=== PATIENT | female | born 1930 | race Caucasian/White ===

== ENCOUNTER 2016-03-25 13:59 | Emergency (ER) | payer OTHER ==
[2016-03-25 14:33] LABS: COLOR YELLOW; LEUKOCYTE ESTERASE,URINE TRACE (NEGATIVE); NITRITE,URINE NEGATIVE (NEGATIVE); PH,URINE 5.5 (5.0-7.5)
[2016-03-25 14:34] VITALS: BP 141/78; PULSE 74; RESP 16; TEMP 97.9; O2SAT 93
[2016-03-25 14:46] LABS: MUCUS 1+ /lpf (NONE-1+)
[2016-03-25 14:49] LABS: BACTERIA TRACE /hpf (NONE SEEN); YEAST OCCASIONAL /hpf (NONE SEEN)
--- NOTE | 2016-03-25 15:17 | UCPHY ---
H & P Time Seen by Provider: 03/25/16 14:59 Patient Type: Established HPI/ROS: This patient presents with a chief complaint of dysuria associated with swelling erythema and itching in the vaginal region. She was seen here on the of last month for the same complaints. A urine culture from that visit was negative. She is incontinent chronically and therefore cannot tell if she is experiencing urgency or frequency. 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 Of time. She does not think she has had any vaginal discharge. She denies fever, flank pain, nausea vomiting or diarrhea. She says Antibiotics cause diarrhea generally. The patient is blind Smoking Status: Former smoker Physical Exam: This is a well-developed well-nourished female who is in no acute distress. She is appropriate and cooperative. There is no abdominal tenderness and no flank tenderness. Constitutional: Initial Vital Signs Temperature (C) 36.6 C 03/25/16 14:27 Heart Rate 74 03/25/16 14:27 Respiratory Rate 16 03/25/16 14:27 Blood Pressure 141/78 H 03/25/16 14:27 O2 Sat (%) 93 03/25/16 14:27 O2 Delivery Mode Room Air Allergies/Adverse Reactions: No Known Allergies Allergy (Verified 03/25/16 14:26) Home Medications: Medication Instructions Recorded Aspirin 81mg (*) 10/28/15 Escitalopram Oxalate 10/28/15 GLIPIZIDE 10/28/15 Gabapentin 10/28/15 Levothyroxine 10/28/15 Losartan Potassium 10/28/15 Metformin HCl 10/28/15 Metoprolol Tartrate 10/28/15 Multivitamin 10/28/15 Omeprazole 10/28/15 SIMVASTATIN 10/28/15 buPROPion 10/28/15 Fluconazole [Diflucan (*)] 150 mg PO ONCE #0 tab 03/14/16 Medical Decision Making Differential Diagnosis: A urinalysis is not suggestive of a urinary tract infection and I believe the abnormalities are secondary to contamination. A culture however was ordered. The patient has an appointment with an doctor of nurse anesthesia in 3 days which she is advised to keep. - Data Points Laboratory Results: 03/25/16 14:30 Urine Color YELLOW Urine Appearance CLEAR Urine pH 5.5 (5.0-7.5) Ur Specific [place] 1.020 (1.002-1.030) Urine Protein NEGATIVE (NEGATIVE) Urine Ketones NEGATIVE (NEGATIVE) Urine Blood NEGATIVE (NEGATIVE) Urine Nitrate NEGATIVE (NEGATIVE) Urine Bilirubin NEGATIVE (NEGATIVE) Urine Urobilinogen 0.2 EU (0.2-1.0) Ur Leukocyte Esterase TRACE H (NEGATIVE) Urine RBC 1-3 /hpf (0-3) Urine WBC 5-10 H /hpf (0-3) Ur Epithelial Cells 2+ H /lpf (NONE-1+) Urine Bacteria TRACE H /hpf (NONE SEEN) Urine Mucus 1+ /lpf (NONE-1+) Urine Yeast OCCASIONAL H /hpf (NONE SEEN) Urine Glucose NEGATIVE (NEGATIVE) Departure - Departure Disposition: Home, Routine, Self-Care Clinical Impression: Dysuria, Itching in the vaginal area Condition: Good Instructions: Dysuria (ED) Additional Instructions: Keep your appointment with the clinic as previously scheduled on Monday. Try using [id number] Monistat or a similar medication. Take the Diflucan in 2 more days. Call for pending test results in 3 day(s). [facility] [phone] [facility] [phone] [facility] [phone] Tests pending: Urine culture - PQRS PQRS Measurement: Not applicable
== END 2016-03-25 15:23 | disposition home or self-care (01) ==
LOC: CED 13:59
DX: R30.0 Dysuria (principal); N89.8 Other specified noninflammatory disorders of vagina; Z87.891 Personal history of nicotine dependence
CPT/HCPCS: 81003-PO; 81015-PO; 99214-PO; G0463-PO

== ENCOUNTER 2016-08-18 08:47 | Inpatient (IN) | payer OTHER ==
--- NOTE | 2016-08-18 09:29 | EDPHY ---
H & P Stated Complaint: c/o am shaking with magali falls - BS @ 0800- 91 Time Seen by Provider: 08/18/16 08:56 HPI/ROS: Chief Complaint: Shaking, can't walk HPI: 85-year-old woman with a history of type 2 diabetes presenting feeling shaky with the inability to walk today. Patient states she has been having increasing shaking primarily in the mornings when she gets up. This morning she got up and noted that her blood sugar at 8 o'clock this morning was 91. Patient was able to make it to the bathroom but was able to get up off the toilet. She did call a neighbor to help her. Patient states that she is having a hard time holding on her walker and ambulating because of the shakiness. She did fall last week and was unable to get up. Denies any fevers or chills. No chest pain or shortness of breath. Has have chronic urine incontinence and has had urinary tract infections in the past. There has not been any changes to her medications recently. She states that the shaking is usually gets better later in the morning after she has had something the eat. ROS: 10 point Review of Systems is negative except as noted in the HPI. PMH: Type 2 diabetes, hypothyroidism, hypertension, COPD, macular degeneration Medications: Oxygen 2 L via nasal cannula, metformin, metoprolol, gabapentin, levothyroxine, simvastatin, glipizide, escitalopram Social History: No smoking, no alcohol, no recreational drug use, patient lives alone in apartment Family History: non-contributory Physical Exam: Gen: Awake, Alert, No Distress HEENT: Nose: no rhinorrhea Eyes: PERRLA, EOMI Mouth: Moist mucosa Neck: Supple, no JVD Chest: nontender, lungs clear to auscultation Heart: S1, S2 normal, no murmur Abd: Soft, non-tender, no guarding Back: no CVA tenderness, no midline tenderness Ext: no edema, non-tender Skin: no rash Neuro: CN II-XII intact, Sensation grossly intact, Strength 5/5 in bilateral upper and lower extremities - Personal History Tetanus Vaccine Date: within 10 years - Medical/Surgical History Hx Asthma: No Hx Chronic Respiratory Disease: No Hx Diabetes: No Hx Cardiac Disease: No Hx Renal Disease: No Hx Cirrhosis: No Hx Alcoholism: No Hx HIV/AIDS: No Hx Splenectomy or Spleen Trauma: No Other PMH: BACK SURG, KNEE REPLACEMENT, CARDIAC STENTS, BACK SURG, TONSILS, FX PELVIS, GALLBLADDER, DVT, HTN. - Social History Smoking Status: Former smoker Constitutional: Initial Vital Signs Temperature (C) 36.6 C 08/18/16 08:59 Heart Rate 67 08/18/16 08:59 Respiratory Rate 18 08/18/16 08:59 Blood Pressure 144/87 H 08/18/16 08:59 O2 Sat (%) 94 08/18/16 08:59 O2 Delivery Mode Nasal Cannula O2 (L/minute) 2 Allergies/Adverse Reactions: No Known Allergies Allergy (Verified 03/25/16 14:26) Home Medications: Medication Instructions Recorded Aspirin 81mg (*) 10/28/15 Escitalopram Oxalate 10/28/15 GLIPIZIDE 10/28/15 Gabapentin 10/28/15 Levothyroxine 10/28/15 Losartan Potassium 10/28/15 Metformin HCl 10/28/15 Metoprolol Tartrate 10/28/15 Multivitamin 10/28/15 Omeprazole 10/28/15 SIMVASTATIN 10/28/15 buPROPion 10/28/15 Fluconazole [Diflucan (*)] 150 mg PO ONCE #0 tab 03/14/16 Medical Decision Making - Diagnostics EKG Interpretation: ECG time 10:38 a.m. sinus rhythm with a rate of 57, normal axis, normal intervals, no acute ST or T-wave changes. Impression: Normal ECG Imaging Results: Imaging Impressions Chest X-Ray 08/18/16 09:59 Impression: 1. No pneumonia. 2. Cardiomegaly without failure. 3. Atherosclerosis. Imaging: I viewed and interpreted images myself ED Course/Re-evaluation: Patient with shaking missing weakness and inability to walk this morning. Has been having similar symptoms but is increasing in frequency. Chest x-ray shows no pneumonia. Urinalysis is negative. Chemistry is normal. Blood sugar here is 140. A wet sugar 91 this morning I suspect that she is having low blood sugars in the morning which is causing her symptoms which are improving over the course today after she eats. Unfortunately she lives alone and was unable to get herself off the toilet this morning. Male discussed with the hospitalist about a hospitalization to assess her blood sugars overnight and make any appropriate changes and further workup. She does have a leukocytosis but there is no focus of infection at this time. - Data Points Laboratory Results: Laboratory Results 08/18/16 09:30 08/18/16 09:30 08/18/16 08/18/16 08/18/16 09:30 09:30 09:30 WBC 13.86 10^3/uL H 10^3/uL (3.80-9.50) RBC 5.02 10^6/uL 10^6/uL (4.18-5.33) Hgb 13.9 g/dL g/dL (12.6-16.3) Hct 42.7 % % (38.0-47.0) MCV 85.1 fL fL (81.5-99.8) MCH 27.7 pg L pg (27.9-34.1) MCHC 32.6 g/dL g/dL (32.4-36.7) RDW 15.7 % H % (11.5-15.2) Plt Count 271 10^3/uL 10^3/uL (150-400) MPV 9.8 fL fL (8.7-11.7) Neut % (Auto) 74.6 % H % (39.3-74.2) Lymph % (Auto) 12.8 % L % (15.0-45.0) [place] % (Auto) 8.2 % % (4.5-13.0) Eos % (Auto) 2.7 % % (0.6-7.6) Baso % (Auto) 0.9 % % (0.3-1.7) Nucleat RBC Rel Count 0.0 % % (0.0-0.2) Absolute Neuts (auto) 10.33 10^3/uL H 10^3/uL (1.70-6.50) Absolute Lymphs (auto) 1.78 10^3/uL 10^3/uL (1.00-3.00) Absolute Monos (auto) 1.14 10^3/uL H 10^3/uL (0.30-0.80) Absolute Eos (auto) 0.38 10^3/uL 10^3/uL (0.03-0.40) Absolute Basos (auto) 0.12 10^3/uL H 10^3/uL (0.02-0.10) Absolute Nucleated RBC 0.00 10^3/uL 10^3/uL (0-0.01) Immature Gran % 0.8 % % (0.0-1.1) Immature Gran # 0.11 10^3/uL H 10^3/uL (0.00-0.10) Sodium 137 mEq/L mEq/L (134-144) Potassium 4.8 mEq/L mEq/L (3.5-5.2) Chloride 100 mEq/L mEq/L (97-110) Carbon Dioxide 23 mEq/l mEq/l (22-31) Anion Gap 14 mEq/L mEq/L (8-16) BUN 23 mg/dL mg/dL (7-23) Creatinine 0.9 mg/dL mg/dL (0.6-1.0) Estimated GFR 60 Glucose 144 mg/dL H mg/dL (70-100) Calcium 9.3 mg/dL mg/dL (8.5-10.4) Total Bilirubin 0.6 mg/dL mg/dL (0.1-1.4) Conjugated Bilirubin 0.3 mg/dL mg/dL (0.0-0.5) Unconjugated Bilirubin 0.3 mg/dL mg/dL (0.0-1.1) AST 24 IU/L IU/L (14-46) ALT 26 IU/L IU/L (9-52) Alkaline Phosphatase 68 IU/L IU/L (38-126) Total Protein 6.3 g/dL g/dL (6.3-8.2) Albumin 3.5 g/dL g/dL (3.5-5.0) Lipase 66.0 IU/L IU/L (23-300) Urine Color YELLOW Urine Appearance CLEAR Urine pH 6.0 (5.0-7.5) Ur Specific [place] <= 1.005 (1.002-1.030) Urine Protein NEGATIVE (NEGATIVE) Urine Ketones NEGATIVE (NEGATIVE) Urine Blood NEGATIVE (NEGATIVE) Urine Nitrate NEGATIVE (NEGATIVE) Urine Bilirubin NEGATIVE (NEGATIVE) Urine Urobilinogen 0.2 EU EU (0.2-1.0) Ur Leukocyte Esterase NEGATIVE (NEGATIVE) Urine Glucose NEGATIVE (NEGATIVE) Departure - Departure Disposition: [facility] Clinical Impression: Weakness, Tremor, Falls Condition: Fair Referrals: Gary Davis MD [Primary Care Provider] - As per Instructions
[2016-08-18 09:50] LABS: % IMMATURE GRANULYOCYTES 0.8 % (0.0-1.1); ABSOLUTE IMMATURE GRANULOCYTES 0.11 10^3/uL (0.00-0.10); ADD DIFF? NO; ADD MORPH? NO; ADD SCAN? NO; ATYPICAL LYMPHOCYTE FLAG 0 (0-99); FRAGMENT RBC FLAG 0 (0-99); HEMATOCRIT 42.7 % (38.0-47.0); HEMOGLOBIN 13.9 g/dL (12.6-16.3); LEFT SHIFT FLG 0 (0-99); LIPEMIA HEMOLYSIS FLAG 80 (0-99); MEAN CELL HEMOGLOBIN 27.7 pg (27.9-34.1); MEAN CELL HEMOGLOBIN CONCENTR. 32.6 g/dL (32.4-36.7); MEAN CELL VOLUME 85.1 fL (81.5-99.8); MEAN PLATELET VOLUME 9.8 fL (8.7-11.7); PLATELET CLUMPS FLAG 0 (0-99); PLATELET COUNT 271 10^3/uL (150-400); RED BLOOD CELL COUNT 5.02 10^6/uL (4.18-5.33); RED CELL DISTRIBUTION WIDTH 15.7 % (11.5-15.2)
[2016-08-18 09:54] LABS: COLOR YELLOW; LEUKOCYTE ESTERASE,URINE NEGATIVE (NEGATIVE); NITRITE,URINE NEGATIVE (NEGATIVE)
[2016-08-18 10:04] LABS: ALBUMIN 3.5 g/dL (3.5-5.0); BILIRUBIN,TOTAL 0.6 mg/dL (0.1-1.4); BILIRUBIN-CONJUGATED 0.3 mg/dL (0.0-0.5); BILIRUBIN-UNCONJUGATED 0.3 mg/dL (0.0-1.1); CALCIUM 9.3 mg/dL (8.5-10.4); CREATININE 0.9 mg/dL (0.6-1.0); POTASSIUM 4.8 mEq/L (3.5-5.2); TOTAL PROTEIN 6.3 g/dL (6.3-8.2)
--- NOTE | 2016-08-18 10:40 | CPEKG ---
Heart Rate: 57 RR Interval: 1053 P-R Interval: 164 QRSD Interval: 80 QT Interval: 392 QTC Interval: 382 P Deep Water: 11 QRS Deep Water: 16 T Wave Deep Water: 66 EKG Severity - BORDERLINE ECG - EKG Impression: SINUS RHYTHM EKG Impression: BORDERLINE T ABNORMALITIES, LATERAL LEADS Electronically Signed By: Demetrio Gu 18-Aug-2016 13:26:43
[2016-08-18] MEDS ORDERED: ONDANSETRON 4 MG/2 ML VIAL IVP PRN (14:26)
[2016-08-18] MEDS ORDERED: D50W 25 GM/50 ML SYR IVP PRN (14:27)
--- NOTE | 2016-08-18 15:04 | GHP ---
[f rep st] HISTORY AND PHYSICAL DATE OF ADMISSION: 08/18/2016 CHIEF COMPLAINT: Weakness and shaking. HISTORY OF PRESENT ILLNESS: This is an 85-year-old female with a longstanding history of type 2 klarissa betes mellitus, hypertension, and macular degeneration, who lives independently in [place] who awo ke this morning feeling very weak and unable to walk. The patient has been having shakes in the mor edmundo when she gets up. Her shakes get better when she eats. This morning, her blood sugar was 91 a t 8 o'clock this morning. The patient has caregivers who come to her house a couple times per night. She has been compliant w ith her metformin and glipizide. Last night, she did not have a very large dinner since she did not have anyone to help her prepare anything. She denies any fevers or chills. She has chronic urinary incontinence but denies any pain with urin ation or changes in her urine odor or color. She denies any chest pain or shortness of breath. PAST MEDICAL HISTORY: 1. Type 2 diabetes mellitus. 2. Hypothyroidism. 3. Hypertension. 4. Macular degeneration. PAST SURGICAL HISTORY: 1. Back surgery. 2. Left total knee arthroplasty x2. 3. Cholecystectomy. HOME MEDICATIONS: Reviewed. Refer to [employer] for details. ALLERGIES: Adhesive tape. SOCIAL HISTORY: The patient lives independently in [place]. She denies any alcohol, tobacco, or illicit drug use. FAMILY HISTORY: Reviewed and noncontributory. REVIEW OF SYSTEMS: Comprehensive 10-point review of systems was done and is negative except for as mentioned in the HPI. PHYSICAL EXAMINATION: VITAL SIGNS: Blood pressure 146/58, pulse 67, respiratory rate 18, O2 satura tion 94% on 2 L. Temperature afebrile. GENERAL: No acute distress. HEAD: Normocephalic, atrauma tic. EYES: PERRLA. Sclerae anicteric. MOUTH: Moist mucous membranes. NECK: Supple. No lympha denopathy. CARDIOVASCULAR: S1, S2. No JVD. No lower extremity edema. PULMONARY: Lungs are nguyễn r. No wheezes, rales, or rhonchi. ABDOMEN: Soft, nontender, nondistended. No guarding or rebound tenderness. Normoactive bowel sounds. EXTREMITIES: No clubbing or cyanosis. NEURO: Cranial ner ves 2-12 grossly intact. No focal motor or sensory deficits. SKIN: Clear. No rashes. DIAGNOSTICS: WBC is 13.86 hemoglobin 13.9, hematocrit 42.7, platelets 271. Sodium 137, potassium 4 .8, chloride 100, CO2 of 23, BUN 23, creatinine 0.9, glucose 144. LFTs reviewed and unremarkable. UA without signs of infection. EKG, which I visualized and personally interpreted, shows sinus rhythm, rate 57 beats per minute, no acute ischemic changes. Chest x-ray is negative for pneumonia. ASSESSMENT AND PLAN: This is an 85-year-old female presenting with: 1. Episodic weakness and shaking that improves with eating, concerning for possible hypoglycemia ve rsus other. Plan: Patient will be placed on observation where we will hold her home dose of glipiz sachi. Blood sugars will be monitored q.a.c. and h.s. Will also order hemoglobin A1c. 2. History of hypertension. Plan: Continue home medications and monitor. 3. History of hypothyroidism. Plan: Check a TSH since this could possibly be contributing to her weakness as well. DISPOSITION: At this point, the patient will be placed on observation. We will defer ordering Love nox for DVT prophylaxis at this time but will readdress if she continues to require further hospital ization. PT and OT have been consulted as well. /[id number]/MODL
[2016-08-18] MEDS: INSULIN LISPRO 100 UNIT/ML SC SCH (18:12)
[2016-08-18] MEDS ORDERED: CARBOXYMETHYLCELLULOSE 1% 0.4 ML DROPERETTE EACHEYE PRN (20:29)
[2016-08-18 21:23] LABS: HEMOGLOBIN A1C 7.6 % (4.0-6.0)
[2016-08-18] MEDS: ACETAMINOPHEN 325 MG TAB PO PRN (22:05)
[2016-08-18] MEDS: ASPIRIN 81 MG CHEWABLE TAB PO SCH (22:06)
[2016-08-18] MEDS: GABAPENTIN 300 MG CAP PO SCH (22:06)
[2016-08-18] MEDS: METOPROLOL TARTRATE 25 MG TAB PO SCH (22:06)
[2016-08-18] MEDS: ATORVASTATIN CALCIUM 20 MG TAB PO SCH (22:09)
[2016-08-18] MEDS: traZODone 50 MG TAB PO PRN (22:18)
[2016-08-19] MEDS: ACETAMINOPHEN 325 MG TAB PO PRN ×2 (05:17→21:21)
[2016-08-19] MEDS: LEVOTHYROXINE 88 MCG TAB PO SCH (05:17)
[2016-08-19] MEDS ORDERED: CETIRIZINE 10 MG TAB PO PRN (09:00)
[2016-08-19] MEDS: buPROPion XL 150 MG TAB PO SCH (09:17)
[2016-08-19] MEDS: metFORMIN HCL 500 MG TAB PO SCH ×2 (09:17→17:16)
[2016-08-19] MEDS: METOPROLOL TARTRATE 25 MG TAB PO SCH ×2 (09:17→21:20)
[2016-08-19] MEDS: ESCITALOPRAM OXALATE 10 MG TAB PO SCH (09:17)
[2016-08-19] MEDS: PANTOPRAZOLE SODIUM 40 MG TAB PO SCH (09:17)
[2016-08-19] MEDS: INSULIN LISPRO 100 UNIT/ML SC SCH ×3 (09:24→17:15)
--- NOTE | 2016-08-19 09:43 | HOSPPROG ---
Hospitalist Progress Note Assessment/Plan: #episodic weakness and shaking suspect hypoglycemia from glipizide with persistent weakness which I suspect is now due to a fear from falling. I discussed this with the patient's daughter Alyse who shared with me that her mother has not been very mobile for awhile due to fear. -no signs of hypoglycemia since holding glipizide -will resume am dose, but continue to hold pm dose #controlled hypothyroidism #Htn (controlled) Dispo: will change to inpatient status given that she is too weak and unsteady to return home today. May need SNF/rehab. DC Godfrey Subjective: still feels weak. improving shaking. not able to get out of bed without assist. no chest pain. no fevers or chills Objective: Vital Signs Temp Pulse Resp BP Pulse Ox 36.8 C 66 18 155/85 H 96 08/19/16 07:26 08/19/16 09:17 08/19/16 07:26 08/19/16 09:17 08/19/16 07:26 08/18/16 08/19/16 08/20/16 05:59 05:59 05:59 Output Total 950 1600 Balance -950 -1600 - Physical Exam Constitutional: no apparent distress, appears nourished, not in pain Eyes: PERRL, anicteric sclera, EOMI Ears, Nose, Mouth, Throat: moist mucous membranes, hearing normal, ears appear normal, no oral mucosal ulcers Cardiovascular: regular rate and rhythym, no murmur, rub, or gallop Respiratory: no respiratory distress, no rales or rhonchi, clear to auscultation Gastrointestinal: normoactive bowel sounds, soft, non-tender abdomen, no palpable masses, No guarding, No rebound Genitourinary: godfrey in urethra Skin: no rashes or abrasions, no fluctuance, no induration Neurologic: AAOx3, sensation intact bilaterally, CN II-XII Intact, No facial droop ICD10 Worksheet Patient Problems: Problems Problem Status Onset Itching in the vaginal area Acute Weakness Acute Tremor Acute Falls Acute
[2016-08-19] MEDS: glipiZIDE 5 MG TAB PO SCH (12:46)
[2016-08-19] MEDS: GABAPENTIN 300 MG CAP PO SCH (21:21)
[2016-08-19] MEDS: traZODone 50 MG TAB PO PRN (21:21)
[2016-08-19] MEDS: ASPIRIN 81 MG CHEWABLE TAB PO SCH (21:21)
[2016-08-19] MEDS: ATORVASTATIN CALCIUM 20 MG TAB PO SCH (21:21)
[2016-08-20] MEDS: ACETAMINOPHEN 325 MG TAB PO PRN ×3 (05:40→23:11)
[2016-08-20] MEDS: LEVOTHYROXINE 88 MCG TAB PO SCH (05:40)
[2016-08-20] MEDS: INSULIN LISPRO 100 UNIT/ML SC SCH ×3 (09:04→17:38)
[2016-08-20] MEDS: PANTOPRAZOLE SODIUM 40 MG TAB PO SCH (09:09)
[2016-08-20] MEDS: buPROPion XL 150 MG TAB PO SCH (09:09)
[2016-08-20] MEDS: METOPROLOL TARTRATE 25 MG TAB PO SCH ×2 (09:09→20:10)
[2016-08-20] MEDS: metFORMIN HCL 500 MG TAB PO SCH ×2 (09:09→18:44)
[2016-08-20] MEDS: glipiZIDE 5 MG TAB PO SCH (09:09)
[2016-08-20] MEDS: ESCITALOPRAM OXALATE 10 MG TAB PO SCH (09:10)
--- NOTE | 2016-08-20 09:59 | HOSPPROG ---
Hospitalist Progress Note Assessment/Plan: #episodic weakness and shaking suspect hypoglycemia from glipizide with persistent weakness which I suspect is now due to a fear from falling. I discussed this with the patient's daughter Alyse who shared with me that her mother has not been very mobile for awhile due to fear. PT has deemed her unsafe to DC home -no signs of hypoglycemia since holding glipizide -continue am dose, but continue to hold pm dose of glipizide #controlled hypothyroidism #Htn (controlled) Dispo:dc to snf once bed is available Subjective: still feels weak. no fevers or chills. no urinary complaints Objective: Vital Signs Temp Pulse Resp BP Pulse Ox 36.8 C 62 17 126/83 H 92 08/20/16 07:37 08/20/16 09:09 08/20/16 07:37 08/20/16 09:09 08/20/16 07:37 08/19/16 08/20/16 08/21/16 05:59 05:59 05:59 Intake Total 600 Output Total 800 Balance -200 - Physical Exam Constitutional: no apparent distress, appears nourished, not in pain Musculoskeletal: generalized weakness Neurologic: AAOx3, sensation intact bilaterally Psychiatric: interacting appropriately, not anxious, not encephalopathic, thought process linear ICD10 Worksheet Patient Problems: Problems Problem Status Onset Itching in the vaginal area Acute Weakness Acute Tremor Acute Falls Acute
[2016-08-20] MEDS: ATORVASTATIN CALCIUM 20 MG TAB PO SCH (20:11)
[2016-08-20] MEDS: GABAPENTIN 300 MG CAP PO SCH (20:11)
[2016-08-20] MEDS: ASPIRIN 81 MG CHEWABLE TAB PO SCH (20:11)
[2016-08-20] MEDS: CEPACOL LOZENGE PO PRN (20:14)
[2016-08-20] MEDS: traZODone 50 MG TAB PO PRN (23:11)
[2016-08-21] MEDS: LEVOTHYROXINE 88 MCG TAB PO SCH (06:00)
[2016-08-21] MEDS: CEPACOL LOZENGE PO PRN ×2 (06:04→19:49)
[2016-08-21] MEDS: INSULIN LISPRO 100 UNIT/ML SC SCH ×3 (09:20→18:30)
[2016-08-21] MEDS: buPROPion XL 150 MG TAB PO SCH (09:23)
[2016-08-21] MEDS: METOPROLOL TARTRATE 25 MG TAB PO SCH ×2 (09:23→19:51)
[2016-08-21] MEDS: glipiZIDE 5 MG TAB PO SCH (09:23)
[2016-08-21] MEDS: ESCITALOPRAM OXALATE 10 MG TAB PO SCH (09:23)
[2016-08-21] MEDS: ACETAMINOPHEN 325 MG TAB PO PRN ×3 (09:23→21:59)
[2016-08-21] MEDS: metFORMIN HCL 500 MG TAB PO SCH ×2 (09:23→18:30)
[2016-08-21] MEDS: PANTOPRAZOLE SODIUM 40 MG TAB PO SCH (09:23)
--- NOTE | 2016-08-21 11:41 | PDIAF ---
- Diagnosis Diagnosis: weakness Code Status: Full Code - Medication Management Discharge Medications: Medications to Continue on Transfer Aspirin [Aspirin 81mg (*)] 81 mg PO HS 10/28/15 [Last Taken 08/17/16] Carboxymethylcellulose 1% [Refresh Celluvisc (*)] 1 drop EACHEYE BID PRN [Last Taken 08/18/16] Escitalopram Oxalate [Lexapro 10 MG] 10 mg PO DAILY 10/28/15 [Last Taken ] Gabapentin [Neurontin 300 MG (*)] 300 mg PO HS 10/28/15 [Last Taken 08/17/16] Levothyroxine [Synthroid 88 mcg (*)] 88 mcg PO DAILY06 10/28/15 [Last Taken 04/05] Metoprolol Tartrate [Lopressor 25 mg (*)] 25 mg PO BID 10/28/15 [Last Taken 04/05] Multivitamins [Multivitamin (*)] 1 each PO DAILY 10/28/15 [Last Taken Unknown] Omeprazole [Prilosec 20 mg] 20 mg PO DAILY 10/28/15 [Last Taken 08/18/16] Simvastatin [Zocor] 40 mg PO HS 10/28/15 [Last Taken 08/17/16] buPROPion XL [Wellbutrin 150mg XL] 150 mg PO DAILY 10/28/15 [Last Taken 08/18/16 ] glipiZIDE [Glipizide] 5 mg PO DAILY 10/28/15 [Last Taken 08/18/16] metFORMIN HCL [Glucophage 500 mg (*)] 500 mg PO BIDMEAL 10/28/15 [Last Taken 04/05] Loratadine [Claritin] 10 mg PO DAILY PRN 08/18/16 [Last Taken Unknown] Discharge Medications: Refer to the Discharge Home Medication list for PRN reason. - Orders Services needed: Physical Therapy, Occupational Therapy Diet Recommendation: ADA 1800 consistent carb Diet Texture: Regular Texture Diet Additional: check glucose before meals and at bedtime - Follow Up Care Current Providers and Referrals: Gary Davis MD [Primary Care Provider] - As per Instructions
--- NOTE | 2016-08-21 12:52 | HOSPPROG ---
Hospitalist Progress Note Assessment/Plan: #episodic weakness and shaking suspect hypoglycemia from glipizide with persistent weakness which I suspect is now due to a fear from falling. I discussed this with the patient's daughter Alyse who shared with me that her mother has not been very mobile for awhile due to fear. PT has deemed her unsafe to DC home -no signs of hypoglycemia since holding glipizide -continue am dose, but continue to hold pm dose of glipizide #controlled hypothyroidism #Htn (controlled) Dispo:dc to snf once bed is available Subjective: no new issues. improving strength Objective: Vital Signs Temp Pulse Resp BP Pulse Ox 36.8 C 58 L 14 144/50 H 97 08/21/16 08:00 08/21/16 09:23 08/21/16 08:00 08/21/16 09:23 08/21/16 08:00 08/20/16 08/21/16 08/22/16 05:59 05:59 05:59 Intake Total 600 400 236 Output Total 800 451 Balance -200 -51 236 gen nad cv rrr pulm clear abd soft +bs ext no edema ICD10 Worksheet Patient Problems: Problems Problem Status Onset Itching in the vaginal area Acute Weakness Acute Tremor Acute Falls Acute
--- NOTE | 2016-08-21 13:36 | GDS ---
[f rep st] DISCHARGE SUMMARY DISCHARGE DIAGNOSES: 1. Episodic weakness and shaking from suspected hypoglycemia from p.m. glipizide dose in the settin g of not eating dinner. 2. Controlled hypothyroidism. 3. Hypertension. 4. Generalized weakness and deconditioning. BRIEF HISTORY OF PRESENT ILLNESS: This is an 85-year-old female who presented to the hospital on reporting weakness and shaking. The patient was admitted to the hospital where we have hel d her p.m. dose of glipizide 7.5 mg at bedtime. She has had no noted hypoglycemia. However, the pa ariella has continued to be very weak and not safe to go home. I discussed the patient's condition wi th her daughter, who thinks that her weakness is likely due to deconditioning since she has not been moving around much for the past few weeks since she took a fall at home. While in the hospital, her strength is slowly improving. She has been seen by PT and OT, recommendi ng retirement facility placement. The patient is agreeable to further rehabilitation. PHYSICAL EXAM: VITAL SIGNS: On day of discharge, blood pressure 144/50, pulse 62, respiratory rate 14, O2 saturation 97% on 1 L, temperature afebrile. GENERAL: No acute distress. HEART: S1, S2. LUNGS: Clear. ABDOMEN: Soft. EXTREMITIES: No edema. PERTINENT LABS AND STUDIES DURING HOSPITAL STAY: Hemoglobin A1c was 7.6. DISCHARGE MEDICATIONS: Please refer to discharge medication reconciliation in [facility] for full det ails. Below is a preliminary list. Home medications that have been changed: We have discontinued the patient's glipizide dose of 7.5 m g in the evening. DISCHARGE INSTRUCTIONS: The patient will be discharged from the hospital to rehab for further stren gthening. She should follow up with her primary care provider after being released from rehab to rther address her diabetes management. She should have her blood sugars checked before meals and at bedtime. /[id number]/MODL
[2016-08-21] MEDS: ASPIRIN 81 MG CHEWABLE TAB PO SCH (19:48)
[2016-08-21] MEDS: GABAPENTIN 300 MG CAP PO SCH (19:48)
[2016-08-21] MEDS: ATORVASTATIN CALCIUM 20 MG TAB PO SCH (19:48)
[2016-08-21 19:50] VITALS: RESP 16
[2016-08-21] MEDS: traZODone 50 MG TAB PO PRN (21:59)
[2016-08-22] MEDS: INSULIN LISPRO 100 UNIT/ML SC SCH (11:22)
[2016-08-22 11:23] VITALS: BP 115/65; PULSE 63; TEMP 97.6; O2SAT 98
[2016-08-22] MEDS: ESCITALOPRAM OXALATE 10 MG TAB PO SCH (11:23)
[2016-08-22] MEDS: METOPROLOL TARTRATE 25 MG TAB PO SCH (11:23)
[2016-08-22] MEDS: metFORMIN HCL 500 MG TAB PO SCH (11:23)
[2016-08-22] MEDS: PANTOPRAZOLE SODIUM 40 MG TAB PO SCH (11:23)
[2016-08-22] MEDS: glipiZIDE 5 MG TAB PO SCH (11:23)
[2016-08-22] MEDS: buPROPion XL 150 MG TAB PO SCH (11:23)
--- NOTE | 2016-08-22 14:09 | GDS ---
[f rep st] DISCHARGE SUMMARY DISCHARGE SUMMARY: Please refer to the discharge summary dated 08/21/2016 for full details. This is just an addendum to the discharge summary dated yesterday. Initially, we planned for discharge on 08/21/2016; however, the patient did not have an accepting facility. She remained too weak to return home given her risk for falling. On day of discharge, the patient states that she is slowly getting stronger. She denies any acute complaints. She has found rehab to go to and will subsequently be discharged later on today. PHYSICAL EXAM: VITAL SIGNS: On day of discharge, blood pressure 115/65, pulse of 63, respiratory rate 16, O2 saturation 98% on 2 liters. Temperature afebrile. GENERAL: No acute distress. DISCHARGE MEDICATIONS: Please refer to the discharge medication reconciliation in [facility] for details. DISCHARGE INSTRUCTIONS: The patient will be discharged to rehab for further PT and OT. She will need further management of her diabetes. During this hospital stay, we have held her p.m. dose of glipizide since it was thought that she may be having some morning hypoglycemia contributing to her shakes and weakness. /[id number]/MODL MTDD
== END 2016-08-22 11:58 | DRG 556 ==
LOC: CED 08:47 → CEDHOLD 10:51 → F3N 13:32 → OBSVTOIN 08-19 09:38
PROVIDERS: ADMIT Family Medicine; ATTEND Family Medicine
DX: M62.81 Muscle weakness (generalized) (principal); E11.649 Type 2 diabetes mellitus with hypoglycemia without coma; T38.3X5A Adverse effect of insulin and oral hypoglycemic [antidiabetic] drugs, initial encounter; E03.9 Hypothyroidism, unspecified; I10 Essential (primary) hypertension; J44.9 Chronic obstructive pulmonary disease, unspecified; Z99.81 Dependence on supplemental oxygen; Z91.81 History of falling
CPT/HCPCS: 71020-PO; 80048-PO; 80076-PO; 81003-PO; 83690-PO; 85025-PO; 97116-GP; 97162-GP; 97166-GO; 97530-GO; 97530-GP; 97535-GO; G0378; G8978-GP-CL; G8979-GP-CK; G8987-GO-CM; G8988-GO-CK; J1815

== ENCOUNTER → 2018-05-23 | Outpatient (CLI) | payer OTHER | LOC: FIMAGING 09:35 | PROVIDERS: ATTEND Physician Assistant | DX: M54.9 Dorsalgia, unspecified (principal); Z98.1 Arthrodesis status ==